=== PATIENT | male | born 2000 | race Caucasian/White ===

== ENCOUNTER 2018-01-27 00:15 | Emergency (ER) | payer BC ==
[~2018-01-27] VITALS: Ht 180.3 cm; Wt 78.0 kg
[2018-01-27 00:18] VITALS: BP 118/76; PULSE 89; TEMP 36.9; O2SAT 96; Ht 180.3 cm; Wt 78.0 kg
[2018-01-27] MEDS ORDERED: ACETAMINOPHEN 500 MG TAB PO STA (00:26)
[2018-01-27] MEDS ORDERED: IBUPROFEN 600 MG TAB PO STA (00:26)
[2018-01-27] MEDS ORDERED: TRIA1SPR4 NAE (00:35)
[2018-01-27] MEDS ORDERED: CETI10TA84 PO (00:35)
--- NOTE | 2018-01-27 05:26 | EMERGENCY ROOM VISIT NOTE ---
History First contact with patient: 00:21 Chief Complaint: TOE PAIN, INJURY Stated Complaint: PRESSURE UNDERNEATH TOENAIL FROM BLOOD History of Present Illness The patient is a 17 year old male who presents to the Emergency Room with complaints of injury to his left great toe that occurred while playing basketball. The patient states another player jumped and landed onto his toe. The patient rates his current pain an 8/10, which she describes as a pressure underneath the toenail. The patient has been able to ambulate despite the injury. He is not having pain of the remainder of the foot or ankle. He has not had anything [id number] for his discomfort as the injury occurred roughly 30 minutes ago. Review of Systems More than 6 systems were reviewed and otherwise negative with the exception of history of present illness. Past Medical/Surgical History No chronic medical disease Family History No pertinent family history Social History Smoking Status: Never Smoker Occupation Status: [employer] student Current/Historical Medications Scheduled PRN Cetirizine (Zyrtec), 10 MG PO DAILY PRN for Seasonal Allergies Triamcinolone Acetonide (Nasal (Nasacort Allergy 24Hr), 2 SPRAYS JESSIE DAILY PRN for Seasonal Allergies Physical Exam Vital Signs Date Time Temp Pulse Resp B/P (MAP) Pulse Ox O2 Delivery O2 Flow Rate FiO2 18 00:18 36.9 89 18 118/76 96 Room Air Physical Exam VITALS: Vitals are noted on the nurse's note and reviewed by myself. Vital signs stable. GENERAL: Well-developed, well-nourished, white male, who is in no acute distress and resting comfortably. Patient is cooperative with the examination. HEAD: Normocephalic atraumatic. HEART: Regular rate and rhythm without murmurs gallops or rubs. LUNGS: Clear to auscultation bilaterally without wheezes, rales or rhonchi. No retractions or accessory muscle use. MUSCULOSKELETAL: Tenderness is appreciated over the left great toe distally. There is a subungual hematoma. The patient has full sensation and range of motion otherwise. No significant tenderness of the other toes, midfoot, or ankle. NEURO: Patient was alert and oriented to person place and time. CN II through XII grossly intact. Medical Decision & Procedures Medications Administered Medications (Trade) Dose Ordered Sig/Brigida Route Start Time Stop Time Status Last Admin Dose Admin Acetaminophen (Tylenol Tab) 1,000 mg NOW STAT PO 01/27/18 00:26 01/27/18 00:27 DC 01/27/18 00:38 1,000 MG Ibuprofen (Motrin Tab) 600 mg NOW STAT PO 01/27/18 00:26 01/27/18 00:27 DC 01/27/18 00:38 600 MG ED Course Physical exam and history were performed. Nursing notes, EMR, and Medication List were personally reviewed. Patient appears to have injured his left great toe while playing basketball tonight. He does have obvious subungual hematoma. This was released utilizing an 18-gauge needle, which provided immediate pain relief for the patient. X- ray of the toe was performed. Prior to receiving results of the x-ray the patient eloped from the emergency department. The charge nurse was notified and an event report was completed. I am unsure as to the reasoning of the elopement. I attempted to contact the patient but was unsuccessful. The chart was completed utilizing [employer] Speech Voice Recognition Software. Grammatical errors, random word insertions, pronoun errors, and incomplete sentences are an occasional consequence of this system due to software limitations, ambient noise, and hardware issues. Any formal questions or concerns about the content, text, or information contained within the body of this dictation should be directly addressed to the provider for clarification. . Medical Decision Differential diagnosis includes, but is not limited to: Sprain, strain, fracture , dislocation, subluxation, contusion, and others Impression Primary Impression: Injury of left great toe Additional Impression: Hematoma, subungual, great toe, left Departure Information Dispostion Against Medical Advice Condition GOOD Referrals [facility] (PCP) Forms WORK / SCHOOL INSTRUCTIONS, HOME CARE DOCUMENTATION FORM, IMPORTANT VISIT INFORMATION Patient Instructions [facility] Health Problem Qualifiers
--- NOTE | 2018-01-27 06:41 | DIAGNOSTIC IMAGING REPORT ---
L TOE(S) MIN 2 VIEWS CLINICAL HISTORY: left great toe injury trauma. Pain. COMPARISON: None. DISCUSSION: The bones and joint spaces appear intact. There is no evidence of fracture, dislocation or bony disease. Mild soft tissue edema IMPRESSION: Mild soft tissue edema. No acute bony abnormality. The above report was generated using voice recognition software. It may contain grammatical, syntax or spelling errors. Electronically signed by: Wyatt Dover M.D. 01/27/2018 6:39 AM Dictated Date/Time: 01/27/2018 6:38 AM
== END 2018-01-27 00:55 | disposition left against medical advice (07) ==
LOC: C.EDB 00:17
DX: S90.212A Contusion of left great toe with damage to nail, initial encounter (principal); W23.0XXA Caught, crushed, jammed, or pinched between moving objects, initial encounter; Y93.67 Activity, basketball